=== PATIENT | female | born 1995 | race Hispanic/Latino ===

== ENCOUNTER 2017-10-30 14:22 | Day surgery (SDC) | payer OTHER, SELFPAY ==
[2017-10-30 15:17] VITALS: BMI 34.3
[2017-10-30 15:58] LABS: #Lymphocytes 1.5 thou/uL (1.20-3.40); #Monocytes 0.6 thou/uL (0.11-0.59); #Neutrophils 9.8 thou/uL (1.40-6.50); %Basophils 0.3 % (0.0-1.0); %Eosinophils 0.3 % (0.0-10.0); %Lymphocytes 12.3 % (21.0-51.0); %Monocytes 5.2 % (0.0-10.0); Hemoglobin 11.1 g/dL (12.0-16.0); Mean Corpuscular HGB CONC 34.2 g/dL (32.0-36.0); Mean Corpuscular Hemoglobin 28.8 pg (27.0-31.0); Mean Corpuscular Volume 84.3 fL (78.0-98.0); Platelet Count 292 thou/uL (130-400); RBC Distribution Width 11.2 % (11.5-14.5); Red Blood Cell (RBC) Count 3.85 mill/uL (4.20-5.40); White Blood Cell (WBC) Count 11.9 thou/uL (4.8-10.8)
[2017-10-30 16:17] LABS: ALT (SGPT) 25 U/L (8-55); AST (SGOT) 44 U/L (5-34); Albumin 3.6 g/dL (3.5-5.0); Alkaline Phosphatase 187 U/L (40-150); Anion Gap 9 mmol/L (10-20); BUN (Urea Nitrogen) 6 mg/dL (7.0-18.7); Bilirubin, Total 0.9 mg/dL (0.2-1.2); Calc. Creatinine Clearance 207 mL/min (70-130); Calcium 8.9 mg/dL (7.8-10.44); Carbon Dioxide 21 mmol/L (22-29); Chloride 108 mmol/L (98-107); Estimated GFR-MDRD Greater than 90; Globulin 3.2 g/dL (2.4-3.5); Glucose 93 mg/dL (70-105); Potassium 3.6 mmol/L (3.5-5.1); Protein, Total 6.8 g/dL (6.0-8.3); Sodium 134 mmol/L (136-145)
--- NOTE | 2017-10-30 23:56 | SS ---
DATE OF EVALUATION: 10/30/2017 REGULAR PHYSICIAN: Brain Moya M.D. EVALUATING PHYSICIAN: Geovany Whitten M.D. CHIEF COMPLAINT: Vomiting x1 at home. HISTORY OF PRESENT ILLNESS: Ms. Hamm is a 21-year-old white G1, P0, estimated date of confinement of 12/16/2017 who presents complaining of a single episode of nausea followed by vomiting after eating a late breakfast today. She denies recent illness or other ill contacts. She denies fever, chills, ruptured membranes, vaginal bleeding or decreased movement. She states she is here today, mos tly because she is worried about her baby. PAST MEDICAL HISTORY: Unremarkable. PAST SURGICAL HISTORY: None. CURRENT MEDICATIONS: vitamins. ALLERGIES: No known allergies. SOCIAL HISTORY: She denies tobacco or alcohol use. FAMILY HISTORY: Remarkable for the father of the baby having muscular dystrophy. REVIEW OF SYSTEMS: Denies fever, chills, vaginal bleeding or decreased movement. PHYSICAL EXAMINATION: VITAL SIGNS: Stable and she is afebrile. ABDOMEN: Soft, nontender and gravid. There is no guarding or rebound. heart tones are reassu ring with good aibq-ke-inpq variability and spontaneous accelerations. No significant uterine activi ty is seen. PELVIC: Pelvic examination is deferred. LABORATORY DATA: White blood cell count 11.9, hemoglobin and hematocrit 11.1 and 32.4, platelet coun t 292,000. Chemistry shows a sodium of 134, potassium 3.6, BUN 6, creatinine 0.61, glucose 93, total bilirubin 0.9, AST 44, ALT 25, alkaline phosphatase 187. ASSESSMENT: 1. A 33 and 2/7-week intrauterine . 2. Nausea with vomiting x1, now resolved. Laboratories are normal today. PLAN: The patient will be discharged home. I have discussed the case with Dr. Shagufta Smith who cristian jennifer. She has an appointment with Dr. Moya later this week. She voices understanding of her discha rge instructions and is sent home in good condition.
== END 2017-10-30 17:01 | disposition home health service (06) ==
LOC: L&D/OP 14:22
PROVIDERS: ATTEND Obstetrics & Gynecology
DX: O99.89 Other specified diseases and conditions complicating pregnancy, childbirth and the puerperium (principal); R11.2 Nausea with vomiting, unspecified; Z3A.33 33 weeks gestation of pregnancy
CPT/HCPCS: 36415; 80053; 85025; 99282

== ENCOUNTER 2017-12-13 16:39 | Inpatient (IN) | payer BC ==
[2017-12-13] MEDS ORDERED: HYDROcodone/Acetaminophen 5/325 mg Tablet PO PRN ×2 (17:36)
[2017-12-13] MEDS ORDERED: Ondansetron HCl/PF 4 MG/2 ML Vial IVP PRN (17:36)
[2017-12-13] MEDS ORDERED: Lidocaine 1% (PF) 30 ML VIAL SC PRN (17:36)
[2017-12-13] MEDS ORDERED: Misoprostol 200 MCG TAB PR PRN (17:36)
[2017-12-13] MEDS ORDERED: Docusate 100 MG CAP PO PRN (17:36)
[2017-12-13] MEDS ORDERED: Acetaminophen 500 MG TAB PO PRN (17:36)
[2017-12-13] MEDS ORDERED: Zolpidem Tartrate 5 MG TAB PO PRN (17:36)
[2017-12-13] MEDS ORDERED: NS w/ Oxytocin 10 units 500 ML IV SCH (17:36)
[2017-12-13] MEDS ORDERED: Ibuprofen 800 MG TAB PO PRN (17:36)
[2017-12-13] MEDS ORDERED: Promethazine HCl 25 MG/ML VIAL IM PRN (17:36)
[2017-12-13] MEDS ORDERED: NS / Oxytocin 40 units/1000ml 1,000 ML IV PRN (17:36)
[2017-12-13] MEDS ORDERED: Diphenoxylate HCl/Atropine Tablet PO PRN ×2 (17:36)
[2017-12-13 17:44] LABS: Hemoglobin 12.5 g/dL (12.0-16.0); Mean Corpuscular HGB CONC 33.5 g/dL (32.0-36.0); Mean Corpuscular Volume 83.7 fL (78.0-98.0); Mean Platelet Volume 7.6 fL (7.4-10.4); Platelet Count 329 thou/uL (130-400); RBC Distribution Width 12.7 % (11.5-14.5); Red Blood Cell (RBC) Count 4.47 mill/uL (4.20-5.40); White Blood Cell (WBC) Count 11.2 thou/uL (4.8-10.8)
[2017-12-13 17:46] VITALS: BMI 34.3
[2017-12-13] MEDS: Lactated Ringer's 1,000 ML IV SCH (18:12)
[2017-12-13] MEDS: Misoprostol 100 MCG TAB VAG SCH ×2 (18:12→22:05)
[2017-12-13 18:23] LABS: Hep B Surf Ag Non-Reactive S/CO (NonReactive)
[2017-12-13 18:49] LABS: Syphilis Antibody Nonreactive (Nonreactive); Syphilis Antibody Index 0.06 S/CO (<1.00 Non-Reactive)
[2017-12-13] MEDS: Butorphanol Tartrate 1 MG/ML VIAL SLOW IVP PRN (22:09)
[2017-12-14] MEDS: Lactated Ringer's 1,000 ML IV SCH ×4 (00:22→17:35)
[2017-12-14] MEDS: Butorphanol Tartrate 1 MG/ML VIAL SLOW IVP PRN (02:03)
[2017-12-14] MEDS: Misoprostol 100 MCG TAB VAG SCH (02:03)
[2017-12-14] MEDS: Bupivacaine 0.5% 20 ML, fentaNYL Citrate/PF 400 MCG in Sodium Chloride 0.9% 72 ML EPIDURAL SCH ×3 (05:45→19:22)
[2017-12-14] MEDS ORDERED: Acetaminophen 325 MG TAB PO PRN ×2 (05:48→21:46)
[2017-12-14] MEDS ORDERED: Naloxone HCl 0.4 mg/ml Vial IVP PRN ×4 (05:48→21:25)
[2017-12-14] MEDS ORDERED: Ondansetron HCl/PF 4 MG/2 ML Vial IVP PRN ×4 (05:48→21:46)
[2017-12-14] MEDS ORDERED: Promethazine HCl 25 MG/ML VIAL IM PRN ×2 (05:48→21:25)
[2017-12-14] MEDS ORDERED: diphenhydrAMINE 50 MG/ML VIAL IVP PRN ×2 (05:48→21:25)
[2017-12-14] MEDS ORDERED: ePHEDrine/0.9% NaCl/PF SYRINGE 50 mg/10 ml SLOW IVP PRN (05:48)
[2017-12-14] MEDS ORDERED: Eucerin (Mineral Oil/Petrolatum,White) 30 gm Jar TOP PRN ×2 (05:48→21:25)
[2017-12-14] MEDS ORDERED: Lactated Ringer's 500 ML IV PRN (05:48)
[2017-12-14] MEDS ORDERED: fentaNYL Citrate/PF 400 MCG, Bupivacaine 0.5% 20 ML in Sodium Chloride 0.9% 72 ML EPIDURAL SCH (06:00)
[2017-12-14] MEDS ORDERED: Communication Order-Pharmacy FS SCH ×2 (06:00→21:30)
[2017-12-14] MEDS ORDERED: Ondansetron HCl/PF 4 MG/2 ML Vial ONE (11:30)
[2017-12-14] MEDS ORDERED: Bicitra 30 ML UDCUP ONE (20:03)
[2017-12-14] MEDS ORDERED: CEFAZOLIN/Water 2 GM/20 ML SYRINGE ONE (20:03)
[2017-12-14] MEDS ORDERED: Oxytocin 10 UNITS/ML VIAL ONE ×2 (20:39→21:17)
[2017-12-14] MEDS ORDERED: ePHEDrine/0.9% NaCl/PF SYRINGE 50 mg/10 ml ONE (20:39)
[2017-12-14] MEDS ORDERED: Morphine PF 1 MG/ML SYR ONE (20:54)
[2017-12-14] MEDS ORDERED: Meperidine HCl/PF 25 MG/ML VIAL SLOW IVP PRN (21:25)
[2017-12-14] MEDS ORDERED: Promethazine HCl 25 MG SUPP PR PRN (21:25)
[2017-12-14] MEDS ORDERED: Naloxone HCl 0.4 mg/ml Vial IV PRN (21:25)
[2017-12-14] MEDS ORDERED: HYDROmorphone 2 MG/ML VIAL SLOW IVP PRN (21:25)
[2017-12-14] MEDS ORDERED: Ketorolac Tromethamine 30 MG/ML VIAL IVP PRN (21:25)
[2017-12-14] MEDS ORDERED: Ketorolac Tromethamine 30 MG/ML VIAL IVP SCH (21:30)
[2017-12-14] MEDS ORDERED: Lanolin Ointment 7 GM TUBE TOP PRN (21:46)
[2017-12-14] MEDS ORDERED: Bisacodyl 10 MG SUPP PR PRN (21:46)
[2017-12-14] MEDS ORDERED: HYDROcodone/Acetaminophen 5/325 mg Tablet PO PRN (21:46)
[2017-12-14] MEDS ORDERED: diphenhydrAMINE 25 MG CAP PO PRN (21:46)
[2017-12-14] MEDS ORDERED: Misoprostol 200 MCG TAB PR PRN (21:46)
[2017-12-14] MEDS ORDERED: Meperidine HCl/PF 25 MG/ML VIAL IM PRN (21:46)
[2017-12-14] MEDS ORDERED: Zolpidem Tartrate 5 MG TAB PO PRN (21:46)
[2017-12-14] MEDS ORDERED: Lactated Ringer's 1,000 ML IV SCH (22:00)
[2017-12-14] MEDS ORDERED: NS / Oxytocin 40 units/1000ml 1,000 ML IV SCH (22:00)
[2017-12-14] MEDS ORDERED: Ketorolac Tromethamine 30 MG/ML VIAL ONE (22:24)
[2017-12-15] MEDS ORDERED: Bupivacaine 0.25% HCL 30 ML VIAL ONE (04:33)
[2017-12-15] MEDS ORDERED: Lidocaine 2% MPF 10 ML AMP (For Epidural Use) ONE (04:33)
[2017-12-15 05:50] LABS: Hemoglobin 9.6 g/dL (12.0-16.0); Mean Corpuscular HGB CONC 33.3 g/dL (32.0-36.0); Mean Corpuscular Hemoglobin 28.4 pg (27.0-31.0); Mean Corpuscular Volume 85.3 fL (78.0-98.0); Mean Platelet Volume 7.5 fL (7.4-10.4); Platelet Count 215 thou/uL (130-400); RBC Distribution Width 12.7 % (11.5-14.5); Red Blood Cell (RBC) Count 3.36 mill/uL (4.20-5.40); White Blood Cell (WBC) Count 12.3 thou/uL (4.8-10.8)
[2017-12-15] MEDS ORDERED: Adacel (T-DAP) 0.5 ML VIAL IM ONE (09:00)
[2017-12-15] MEDS: Docusate Calcium (SURFAK) 240 MG CAP PO SCH ×2 (09:49→21:14)
[2017-12-15] MEDS: Prenatal Vitamin 1 TAB PO SCH (09:49)
[2017-12-15] MEDS: Ferrous Sulfate 325 MG TAB PO SCH ×2 (09:49→17:14)
[2017-12-15] MEDS: HYDROcodone/Acetaminophen 5/325 mg Tablet PO PRN ×3 (09:55→21:14)
[2017-12-15] MEDS: Ibuprofen 800 MG TAB PO SCH (21:14)
[2017-12-15] MEDS: Simethicone Chewable 80 MG TAB PO PRN (21:14)
[2017-12-16] MEDS: Ibuprofen 800 MG TAB PO SCH ×3 (05:03→22:56)
[2017-12-16] MEDS: Ferrous Sulfate 325 MG TAB PO SCH (09:07)
[2017-12-16] MEDS: Prenatal Vitamin 1 TAB PO SCH (09:07)
[2017-12-16] MEDS: Docusate Calcium (SURFAK) 240 MG CAP PO SCH ×2 (09:08→22:56)
[2017-12-16] MEDS: HYDROcodone/Acetaminophen 5/325 mg Tablet PO PRN (12:28)
[2017-12-16 20:38] VITALS: TEMP 98.7
[2017-12-16] MEDS: Simethicone Chewable 80 MG TAB PO PRN (22:56)
[2017-12-17] MEDS: Ferrous Sulfate 325 MG TAB PO SCH ×2 (05:33→09:43)
[2017-12-17] MEDS: Ibuprofen 800 MG TAB PO SCH ×2 (05:34→13:19)
[2017-12-17] MEDS: Prenatal Vitamin 1 TAB PO SCH (09:42)
[2017-12-17] MEDS: Docusate Calcium (SURFAK) 240 MG CAP PO SCH (09:44)
[2017-12-17 10:20] VITALS: BP 116/71
[2017-12-17] MEDS: HYDROcodone/Acetaminophen 5/325 mg Tablet PO PRN (13:19)
--- NOTE | 2017-12-17 18:40 | OP ---
DATE OF PROCEDURE: 12/14/2017 ATTENDING STAFF PHYSICIAN: Brain Moya M.D. SURGEONS: 1. Brain Moya M.D. 2. Berta Astudillo M.D. POSTOPERATIVE DIAGNOSES: 1. Term intrauterine at 39 weeks. 2. Nonreassuring heart rate tracing. 3. Arrest of descent and dilatation. POSTOPERATIVE DIAGNOSES: 1. Term intrauterine at 39 weeks. 2. Nonreassuring heart rate tracing. 3. Arrest of descent and dilatation. 4. Cephalopelvic disproportion. PROCEDURE PERFORMED: Primary low transverse section. ANESTHESIA: Epidural catheterization. FINDINGS: 1. Nonreassuring heart rate tracing (category 3) with repetitive late decelerations. 2. Arrest of descent and dilatation at 8 cm and +1 station. 3. Significant caput and moulding. 4. Normal uterus, tubes, and ovaries. COMPLICATIONS: None. BLOOD LOSS: QBL 690 mL HISTORY AND INDICATIONS: Mrs. Payal Hamm is a very pleasant 22-year-old black female 1, pa ra 0, who is followed in my clinic for obstetric care. The patient has been followed very closely fo r size less than dates and decreasing amniotic fluid. She presented to the office on 12/13/2017, and there was no interval growth over the last 10 days with the baby. In addition, the amniotic fluid h ad dropped to less than 5 cm with a diagnosis of oligohydramnios. She had a grade III placenta. Her cervix was noted to be 1 cm dilated, 50%-60% effaced and -2 station. She was sent to [facility] for Cytotec cervical ripening and induction of labor. She received three Cytotec on the evening of 12/14/2017, and in the morning of 12/13/2017. Her cervix the next morning was 3 cm dilated, 70% effaced, and -1 station. The patient had spontaneously ruptured at 0430. Pitocin induction was init iated that morning. She subsequently progressed to 8 cm dilation, complete effacement, and +1 statio n. She made no interval pipe changer a period of 3 hours. Throughout the day, we had managed repetit germain periodic changes. That evening, she began to develop late decelerations with a category 3 tracin g. A decision was made to proceed with primary delivery secondary to a category 3 nonreassu ring heart rate tracing with arrest of descent and dilatation. The patient and her wer e counseled at length and questions were answered. Surgical disclosures were signed and placed in e chart. PROCEDURE IN DETAIL: After thorough consent and counseling, Mrs. Hamm was taken to the operating bianca m and an adequate level of anesthesia was obtained by existing epidural catheterization. The patient was prepped and draped in usual sterile fashion for abdominal surgery. A Slaughter had previously been placed in the bladder, which was noted to be draining clear urine. Attention was then turned to perf orming the primary low transverse section. Pfannenstiel incision was made and carried sharply to the fascia, which was also sharply incised. e midline was identified and the rectus muscles were retracted laterally. The abdominal peritoneal c avity was entered with usual safeguards carried out. A retractor was placed and a bladder flap was c reated on the vesicouterine peritoneum. A bladder blade was then placed. A low transverse incision was made on the well-developed lower uterine segment. The infant was noted to be vertex presentation in the occiput anterior position, well engaged into the pelvis. The vertex was carefully delivered with assistance from the nurse providing pressure from below. Head was carefully delivered and baby was bulb suctioned on the abdomen. Shoulders and body were then delivered in an atraumatic fashion. The cord was doubly clamped and cut and the infant was handed to the neonatology team in attendance for delivery. The infant was a vigorous viable male weighing 6 pounds, 5 ounces with Apgars of 8 and 9 obtained at 1 and 5 minutes respectively. Cord blood was obtained. The placenta was manually rem elis from the uterus. The uterus was exteriorized and good tone was noted. The uterine cavity was c leared of any remaining clot and fluid. The low transverse incision was closed with a running lockin g ligature of #1 chromic. A second imbricating layer was placed to facilitate strength and hemostasi s. The vesicouterine peritoneum was reapproximated with a running ligature of 3-0 Monocryl. Good he mostasis was noted. The uterus, fallopian tubes and ovaries were inspected and noted to be normal. The posterior cul-de-sac and gutters were cleared of clot and fluid. The pelvis was carefully inspec lianet and the sacrum was noted to be extremely prominent with an android pelvis noted. The uterus was returned to the abdomen. Good tone and hemostasis again appreciated. Seprafilm was applied to the l ow transverse incision and to the anterior aspect of the uterus for adhesion prevention. Lap, sponge , and needle counts were correct. The peritoneum was then closed with a running ligature of 2-0 Vicr yl suture. The rectus muscles were reapproximated in the midline with interrupted ligatures of 2-0 V icryl and 0 chromic suture. The fascia was then closed with 2 ligatures of 0 Vicryl suture, which we re tied in the midline. Good fascial integrity was appreciated. The incision was irrigated with photocopying equipment repairer ious amount of warm normal saline. The subcutaneous tissue was then closed with interrupted ligature s of 2-0 plain. The skin was closed with a subcuticular stitch of 4-0 Monocryl and dressed with Derm abond. A pressure dressing and ice packs were subsequently placed. Lap, sponge, and needle counts w ere correct x3. Estimated blood loss was approximately 700 mL (QBL equal 690 mL). The patient was awakened and taken to the recovery room in good condition. The baby was taken to the nursery and was doing well. Immediately following surgery, the patient and family were made aware o f the surgical procedure and operative findings. We discussed in detail the indications for delivery including a nonreassuring heart rate tracing with arrest of descent and dilatation. The patient has been given a diagnosis of cephalopelvic disproportion, which we discussed in detail a nd the implications for future deliveries. The patient and her were very appreciative of the care rendered here at [facility] this evening.
== END 2017-12-17 15:15 | disposition home or self-care (01) | DRG 788 ==
LOC: L&D 16:39 → 3SW 12-15 00:54
PROVIDERS: ADMIT Obstetrics & Gynecology; ATTEND Obstetrics & Gynecology
PROC: 10D00Z1 Extraction of Products of Conception, Low, Open Approach (ICD-10-PCS; principal; 2017-12-14)
DX: O33.9 Maternal care for disproportion, unspecified (principal); O62.0 Primary inadequate contractions; Z3A.39 39 weeks gestation of pregnancy; Z37.0 Single live birth; O76 Abnormality in fetal heart rate and rhythm complicating labor and delivery
CPT/HCPCS: 36415; 51702; 85027; 86780; 86850; 86900; 86901; 87340; J0595; J1885; J2001; J2274; J2405; J2590; J3010; J3490; J7050; S0020